=== PATIENT | female | born 1940 | race African-American/Black ===

== ENCOUNTER 2022-04-09 04:46 | Inpatient (IN) | payer MEDICARE, BC ==
[~2022-04-09] VITALS: Ht 162.6 cm; Wt 56.0 kg
[2022-04-09 07:00] LABS: Basophils # (auto) 0 10 ^3/uL (0-0.2); Basophils % (auto) 0.4 % (0.0-2.0); Eosinophils # (auto) 0 10 ^3/uL (0-0.8); Hematocrit 30.7 % (36.0-46.0); Hemoglobin 9.6 g/dL (12.2-16.2); Lymphocytes # (auto) 0.3 10 ^3/uL (0.4-5.4); Lymphocytes % (auto) 6.2 % (10.0-50.0); Mean Corpuscular Hemoglobin 28.3 pg (28.0-32.0); Mean Corpuscular Hgb Conc. 31.5 g/dL (32.0-36.0); Mean Corpuscular Volume 89.9 fL (80.0-100.0); Monocytes # (auto) 0.5 10 ^3/uL (0-1.3); Monocytes % (auto) 11.9 % (0.0-12.0); Neutrophils # (auto) 3.7 10 ^3/uL (1.6-8.6); Neutrophils % (auto) 81.5 % (37.0-80.0); Nucleated Red Blood Cells % 0.3 %; Red Blood Cells 3.41 10^6/uL (4.0-5.20); Red Cell Distribution Width 19.3 % (11.8-14.3); White Blood Cell 4.5 10^3/uL (4.4-10.8)
[2022-04-09] MEDS ORDERED: levoFLOXacin 500MG 100 ML IV ONE (07:00)
[2022-04-09 07:20] LABS: Albumin 3.1 g/dL (3.4-5.0); BUN/Creatinine Ratio 23.7; Calcium 8.7 mg/dL (8.5-10.1); Magnesium 1.9 mg/dL (1.6-2.6); Potassium 4.3 mmol/L (3.5-5.1)
[2022-04-09 07:21] LABS: Bilirubin, Total 0.6 mg/dL (0.2-1.0); Total Protein 8.1 g/dL (6.4-8.2)
[2022-04-09] MEDS ORDERED: ASPirin 325 MG TAB PO ONE (07:45)
[2022-04-09] MEDS ORDERED: FUROSEMIDE 100 MG/10ML VIAL IV ONE (07:45)
[2022-04-09 10:07] LABS: Urine Bacteria NONE SEEN /hpf (None Seen); Urine Blood 2+ /uL (Negative); Urine Hyaline Cast MANY /lpf (0 - 2); Urine Specific Gravity 1.016 (1.001-1.035); Urine WBC 5 /hpf (0 - 5)
[2022-04-09] MEDS ORDERED: MORPHINE SULFATE INJ 2 MG/ml SYRG IV PRN (13:30)
[2022-04-09] MEDS ORDERED: NITROGLYCERIN 0.4 MG SL TAB SL PRN (13:30)
[2022-04-09] MEDS ORDERED: ALBUTEROL SULF HFA 90MCG INH 200DOSE IN PRN (13:45)
[2022-04-09] MEDS ORDERED: ACETAMINOPHEN 500 MG TAB PO PRN (13:45)
[2022-04-09 15:13] LABS: Albumin 3.1 g/dL (3.4-5.0); BUN/Creatinine Ratio 22.1; Calcium 8.1 mg/dL (8.5-10.1); Magnesium 1.9 mg/dL (1.6-2.6); Potassium 4.5 mmol/L (3.5-5.1)
[2022-04-09 15:15] LABS: Bilirubin, Total 0.5 mg/dL (0.2-1.0); Total Protein 8.3 g/dL (6.4-8.2)
[2022-04-09 15:21] LABS: Thyroid Stimulating Hormone 3.01 uIU/mL (0.358-3.74)
[2022-04-09 15:25] LABS: Lactic Acid w/Reflex 3.6 mmol/L (0.4-2.0)
[2022-04-09] MEDS ORDERED: ENOXAPARIN SOD 60 MG/0.6 ML SYRINGE SC ONE (15:30)
[2022-04-09 15:32] LABS: CRP High Sensitivity 0.74 mg/dL (< 0.3)
[2022-04-09 16:29] LABS: Basophils # (auto) 0 10 ^3/uL (0-0.2); Eosinophils # (auto) 0 10 ^3/uL (0-0.8); Hematocrit 32.7 % (36.0-46.0); Hemoglobin 9.9 g/dL (12.2-16.2); Lymphocytes # (auto) 0.3 10 ^3/uL (0.4-5.4); Lymphocytes % (auto) 8.6 % (10.0-50.0); Mean Corpuscular Hemoglobin 26.8 pg (28.0-32.0); Mean Corpuscular Hgb Conc. 30.2 g/dL (32.0-36.0); Mean Corpuscular Volume 88.8 fL (80.0-100.0); Monocytes # (auto) 0.5 10 ^3/uL (0-1.3); Monocytes % (auto) 12.3 % (0.0-12.0); Neutrophils % (auto) 78.1 % (37.0-80.0); Nucleated Red Blood Cells % 0.4 %; Red Blood Cells 3.68 10^6/uL (4.0-5.20); White Blood Cell 3.8 10^3/uL (4.4-10.8)
[2022-04-09 16:35] LABS: Red Cell Distribution Width 19.5 % (11.8-14.3)
[2022-04-09] MEDS ORDERED: ALBUMIN 25% 100 ML IV ONE (19:30)
[2022-04-09] MEDS ORDERED: NOREPINEPHRINE 8 MG/250ML KIT 250 ML IV SCH (19:45)
[2022-04-09] MEDS ORDERED: BUDESONIDE (INHALATION) 180 MCG IH IN SCH (22:00)
[2022-04-10 05:01] LABS: Basophils # (auto) 0 10 ^3/uL (0-0.2); Basophils % (auto) 1.1 % (0.0-2.0); Eosinophils # (auto) 0 10 ^3/uL (0-0.8); Eosinophils % (auto) 0.6 % (0.0-7.0); Hematocrit 29.1 % (36.0-46.0); Hemoglobin 9.2 g/dL (12.2-16.2); Lymphocytes # (auto) 0.3 10 ^3/uL (0.4-5.4); Lymphocytes % (auto) 9.9 % (10.0-50.0); Mean Corpuscular Hemoglobin 27.2 pg (28.0-32.0); Mean Corpuscular Hgb Conc. 31.7 g/dL (32.0-36.0); Mean Corpuscular Volume 85.9 fL (80.0-100.0); Monocytes # (auto) 0.4 10 ^3/uL (0-1.3); Monocytes % (auto) 12.2 % (0.0-12.0); Neutrophils # (auto) 2.6 10 ^3/uL (1.6-8.6); Neutrophils % (auto) 76.2 % (37.0-80.0); Red Blood Cells 3.38 10^6/uL (4.0-5.20); Red Cell Distribution Width 18.4 % (11.8-14.3); White Blood Cell 3.4 10^3/uL (4.4-10.8)
[2022-04-10 05:28] LABS: Albumin 3.2 g/dL (3.4-5.0); Calcium 8.3 mg/dL (8.5-10.1); Potassium 4.9 mmol/L (3.5-5.1)
[2022-04-10 05:31] LABS: BUN/Creatinine Ratio 26.5; Bilirubin, Total 0.8 mg/dL (0.2-1.0); Total Protein 7.7 g/dL (6.4-8.2)
[2022-04-10] MEDS ORDERED: DOBUTamine 1000MCG/ML 250 ML IV SCH (09:30)
[2022-04-10] MEDS ORDERED: CHOLECALCIFEROL (VITD3) 2,000 UNIT CAP/TAB PO SCH (10:00)
[2022-04-10] MEDS ORDERED: ZINC SULFATE 220mg CAP or TAB PO SCH (10:00)
[2022-04-10] MEDS ORDERED: ASCORBIC ACID 1,000 MG TAB PO SCH (10:00)
[2022-04-10] MEDS ORDERED: DexAMETHasone SOD PHOS 10MG/1ML VIAL INJ IV SCH (10:00)
[2022-04-10] MEDS: ENOXAPARIN SOD 60 MG/0.6 ML SYRINGE SC SCH (10:06)
[2022-04-10] MEDS: FUROSEMIDE 20 MG/2 ML VIAL IV SCH (10:06)
[2022-04-10] MEDS: AZITHROMYCIN 500MG/ 250ML 250 ML IV SCH (10:06)
[2022-04-10 18:25] VITALS: BP 128/56
[2022-04-10] MEDS ORDERED: SILD25TA15 PO (18:50)
[2022-04-10] MEDS ORDERED: ZINC220C8 PO (18:50)
[2022-04-10] MEDS ORDERED: MAGN84TA4 PO (18:50)
[2022-04-10] MEDS ORDERED: FERR28TA2 PO (18:50)
[2022-04-10] MEDS ORDERED: PANT40TA2 PO (18:50)
[2022-04-10] MEDS ORDERED: APIX5TAB4 PO (18:50)
[2022-04-10] MEDS ORDERED: FURO20TA3 PO (18:50)
[2022-04-10 22:00] VITALS: BP 114/25
[2022-04-11] VITALS (9 sets, daily range): BP systolic 95–117; BP diastolic 25–49
[2022-04-11 07:02] LABS: Basophils # (auto) 0 10 ^3/uL (0-0.2); Basophils % (auto) 0.9 % (0.0-2.0); Eosinophils # (auto) 0 10 ^3/uL (0-0.8); Eosinophils % (auto) 1.1 % (0.0-7.0); Hematocrit 28.5 % (36.0-46.0); Hemoglobin 8.9 g/dL (12.2-16.2); Lymphocytes # (auto) 0.3 10 ^3/uL (0.4-5.4); Mean Corpuscular Hemoglobin 27.6 pg (28.0-32.0); Mean Corpuscular Hgb Conc. 31.3 g/dL (32.0-36.0); Mean Corpuscular Volume 88.1 fL (80.0-100.0); Monocytes # (auto) 0.5 10 ^3/uL (0-1.3); Monocytes % (auto) 12.9 % (0.0-12.0); Neutrophils % (auto) 78.1 % (37.0-80.0); Nucleated Red Blood Cells % 0.1 %; Red Blood Cells 3.24 10^6/uL (4.0-5.20); Red Cell Distribution Width 19.1 % (11.8-14.3); White Blood Cell 3.9 10^3/uL (4.4-10.8)
[2022-04-11 07:12] LABS: BUN/Creatinine Ratio 29.2; Calcium 8.2 mg/dL (8.5-10.1); Potassium 4.2 mmol/L (3.5-5.1)
[2022-04-11] MEDS: AZITHROMYCIN 500MG/ 250ML 250 ML IV SCH (08:18)
[2022-04-11] MEDS: ENOXAPARIN SOD 60 MG/0.6 ML SYRINGE SC SCH (08:18)
[2022-04-11] MEDS: FUROSEMIDE 20 MG/2 ML VIAL IV SCH (08:22)
[2022-04-11] MEDS ORDERED: cefTRIAXone 1GM/50ML D5W 50 ML IV ONE (10:45)
[2022-04-11] MEDS: HYDROcodone-ACET 5/325MG TAB PO PRN (22:34)
[2022-04-12 06:03] LABS: Basophils # (auto) 0 10 ^3/uL (0-0.2); Eosinophils # (auto) 0.1 10 ^3/uL (0-0.8); Eosinophils % (auto) 2.3 % (0.0-7.0); Hematocrit 27.2 % (36.0-46.0); Hemoglobin 8.8 g/dL (12.2-16.2); Lymphocytes # (auto) 0.4 10 ^3/uL (0.4-5.4); Lymphocytes % (auto) 13.3 % (10.0-50.0); Mean Corpuscular Hemoglobin 27.7 pg (28.0-32.0); Mean Corpuscular Hgb Conc. 32.3 g/dL (32.0-36.0); Mean Corpuscular Volume 85.8 fL (80.0-100.0); Monocytes # (auto) 0.3 10 ^3/uL (0-1.3); Monocytes % (auto) 11.3 % (0.0-12.0); Neutrophils # (auto) 2.2 10 ^3/uL (1.6-8.6); Neutrophils % (auto) 72.1 % (37.0-80.0); Red Blood Cells 3.17 10^6/uL (4.0-5.20); Red Cell Distribution Width 19.1 % (11.8-14.3)
[2022-04-12] MEDS: HYDROcodone-ACET 5/325MG TAB PO PRN ×3 (06:07→22:24)
[2022-04-12 06:21] LABS: BUN/Creatinine Ratio 28.1; Calcium 8.1 mg/dL (8.5-10.1); Potassium 4.9 mmol/L (3.5-5.1)
[2022-04-12] MEDS: cefTRIAXone 1GM/50ML D5W 50 ML IV SCH (09:12)
[2022-04-12] MEDS: ENOXAPARIN SOD 60 MG/0.6 ML SYRINGE SC SCH (10:03)
[2022-04-12] MEDS: AZITHROMYCIN 500MG/ 250ML 250 ML IV SCH (10:03)
[2022-04-12] MEDS: FUROSEMIDE 20 MG/2 ML VIAL IV SCH (10:03)
[2022-04-12 12:00] VITALS: BP 145/66
[2022-04-12 14:00] VITALS: BP 145/58
[2022-04-12 14:46] VITALS: BP 123/55
[2022-04-12 17:00] VITALS: BP 127/59
[2022-04-12 22:00] VITALS: BP 140/77
[2022-04-13 05:00] VITALS: BP 142/64
[2022-04-13 05:51] LABS: Calcium 8.8 mg/dL (8.5-10.1); Potassium 4.5 mmol/L (3.5-5.1)
[2022-04-13 05:58] LABS: BUN/Creatinine Ratio 28.1; Bilirubin, Total 0.4 mg/dL (0.2-1.0); Total Protein 7.6 g/dL (6.4-8.2)
[2022-04-13 06:15] LABS: Hematocrit 28.5 % (36.0-46.0); Hemoglobin 9.3 g/dL (12.2-16.2); Mean Corpuscular Hgb Conc. 32.6 g/dL (32.0-36.0); Red Blood Cells 3.31 10^6/uL (4.0-5.20); Red Cell Distribution Width 18.6 % (11.8-14.3)
[2022-04-13 06:19] LABS: Band Neutrophils % (manual) 0; Basophils % (manual) 0 (0.0-2.0); Blast Cells 0; Metamyelocytes % 0; Myelocytes % 0; Promyelocytes % 0; Reactive Lymphocytes 0
[2022-04-13 06:57] LABS: Eosinophils % (manual) 4 (0-7); Lymphocytes % (manual) 11 (10.0-50.0); Monocytes % (manual) 13 (0-12)
[2022-04-13 09:00] VITALS: BP 120/48
[2022-04-13] MEDS: AZITHROMYCIN 500MG/ 250ML 250 ML IV SCH (10:12)
[2022-04-13] MEDS: ENOXAPARIN SOD 60 MG/0.6 ML SYRINGE SC SCH (10:12)
[2022-04-13] MEDS: cefTRIAXone 1GM/50ML D5W 50 ML IV SCH (10:12)
[2022-04-13] MEDS: FUROSEMIDE 20 MG/2 ML VIAL IV SCH (10:12)
[2022-04-13 13:00] VITALS: BP 118/54
[2022-04-13 17:05] VITALS: BP 119/50
[2022-04-13] MEDS: HYDROcodone-ACET 5/325MG TAB PO PRN (20:27)
[2022-04-13 22:00] VITALS: BP 116/47
[2022-04-14] MEDS: HYDROcodone-ACET 5/325MG TAB PO PRN ×3 (02:39→22:28)
[2022-04-14 05:00] VITALS: BP 119/64
[2022-04-14 06:46] LABS: BUN/Creatinine Ratio 26.9; Calcium 8.6 mg/dL (8.5-10.1); Potassium 4.7 mmol/L (3.5-5.1)
[2022-04-14 06:55] LABS: Hematocrit 27.9 % (36.0-46.0); Hemoglobin 8.9 g/dL (12.2-16.2); Mean Corpuscular Hemoglobin 27.9 pg (28.0-32.0); Mean Corpuscular Volume 87.1 fL (80.0-100.0); Red Cell Distribution Width 19.1 % (11.8-14.3)
[2022-04-14 07:01] LABS: Basophils % (manual) 0 (0.0-2.0); Blast Cells 0; Metamyelocytes % 0; Myelocytes % 0; Promyelocytes % 0; Reactive Lymphocytes 0
[2022-04-14 07:46] LABS: Band Neutrophils % (manual) 1; Eosinophils % (manual) 6 (0-7); Lymphocytes % (manual) 22 (10.0-50.0); Monocytes % (manual) 3 (0-12)
[2022-04-14 09:00] VITALS: BP 123/57
[2022-04-14] MEDS: AZITHROMYCIN 500MG/ 250ML 250 ML IV SCH (10:44)
[2022-04-14] MEDS: cefTRIAXone 1GM/50ML D5W 50 ML IV SCH (10:44)
[2022-04-14] MEDS: FUROSEMIDE 20 MG/2 ML VIAL IV SCH (10:44)
[2022-04-14] MEDS: ENOXAPARIN SOD 60 MG/0.6 ML SYRINGE SC SCH (10:45)
[2022-04-14 13:00] VITALS: BP 131/61
[2022-04-14 17:25] VITALS: BP 131/62
[2022-04-14 22:00] VITALS: BP 112/45
[2022-04-15 05:00] VITALS: BP 127/59
[2022-04-15] MEDS: HYDROcodone-ACET 5/325MG TAB PO PRN ×2 (05:42→20:40)
[2022-04-15 09:15] VITALS: BP 134/62
[2022-04-15] MEDS: cefTRIAXone 1GM/50ML D5W 50 ML IV SCH (09:28)
[2022-04-15] MEDS: FUROSEMIDE 20 MG/2 ML VIAL IV SCH (10:28)
[2022-04-15] MEDS: ENOXAPARIN SOD 60 MG/0.6 ML SYRINGE SC SCH (10:28)
[2022-04-15 12:16] VITALS: BP 127/67
[2022-04-15 17:10] VITALS: BP 139/63
[2022-04-15] MEDS ORDERED: IPRATROPIUM BROM 0.5 MG/2.5ML INH SOL NEB PRN (18:30)
[2022-04-15] MEDS ORDERED: ALBUTEROL SULF 2.5 MG/0.5ML(0.5%) NEB SOLN NEB PRN (18:30)
[2022-04-15 19:26] VITALS: BP 139/63
[2022-04-15] MEDS: methylPREDNISolone SOD SUCC 40 MG/ML VL IV SCH (21:02)
[2022-04-15 22:00] VITALS: BP 120/50
[2022-04-16] MEDS: HYDROcodone-ACET 5/325MG TAB PO PRN (04:05)
[2022-04-16 05:00] VITALS: BP 122/58
[2022-04-16 08:55] VITALS: BP 119/59
[2022-04-16] MEDS: cefTRIAXone 1GM/50ML D5W 50 ML IV SCH (09:04)
[2022-04-16] MEDS: methylPREDNISolone SOD SUCC 40 MG/ML VL IV SCH (09:05)
[2022-04-16] MEDS: FUROSEMIDE 20 MG/2 ML VIAL IV SCH (09:05)
[2022-04-16] MEDS: ENOXAPARIN SOD 60 MG/0.6 ML SYRINGE SC SCH (09:05)
[2022-04-16 10:56] VITALS: BP 119/59
[2022-04-16 13:12] VITALS: BP 116/72
== END 2022-04-16 17:46 | disposition home health service (06) | DRG 280 ==
LOC: EDBD 04:46 → ER 04:46 → TELE 13:26 → TELE-WESTW 04-10 17:39 → DOU IN ICU 04-11 10:28 → TELE-CENTR 04-12 14:48
PROVIDERS: ADMIT Registered Nurse; ATTEND Internal Medicine Pulmonary Disease
DX: I21.4 Non-ST elevation (NSTEMI) myocardial infarction (principal); I50.43 Acute on chronic combined systolic (congestive) and diastolic (congestive) heart failure; J96.21 Acute and chronic respiratory failure with hypoxia; J18.9 Pneumonia, unspecified organism; I48.20 Chronic atrial fibrillation, unspecified; N17.9 Acute kidney failure, unspecified; C78.7 Secondary malignant neoplasm of liver and intrahepatic bile duct; C18.9 Malignant neoplasm of colon, unspecified; C78.1 Secondary malignant neoplasm of mediastinum; I13.0 Hypertensive heart and chronic kidney disease with heart failure and stage 1 through stage 4 chronic kidney disease, or unspecified chronic kidney disease; N18.4 Chronic kidney disease, stage 4 (severe); D63.8 Anemia in other chronic diseases classified elsewhere; D69.6 Thrombocytopenia, unspecified; Z20.822 Contact with and (suspected) exposure to COVID-19; E16.2 Hypoglycemia, unspecified; E88.09 Other disorders of plasma-protein metabolism, not elsewhere classified; I25.10 Atherosclerotic heart disease of native coronary artery without angina pectoris; I27.20 Pulmonary hypertension, unspecified; J84.10 Pulmonary fibrosis, unspecified; Z85.038 Personal history of other malignant neoplasm of large intestine; Z92.21 Personal history of antineoplastic chemotherapy
CPT/HCPCS: 36415; 70450; 71045; 71250; 76775; 80048; 80053; 81001; 82306; 82728; 83036; 83605; 83615; 83735; 83880; 84443; 84484; 85007; 85025; 85027; 85379; 86141; 93005; 93306; 93970; 96365; 96366; 96367; 96372; 96375; 96376; 99291; G0378; J0696; J1956; P9047

== ENCOUNTER 2022-06-04 21:20 | Inpatient (IN) | payer MEDICARE, BC ==
[~2022-06-04] VITALS: Ht 160 cm; Wt 49.2 kg
[~2022-06-04 21:20] MED LIST: APIX5TAB4 PO; FERR28TA2 PO; FURO20TA3 PO; MAGN84TA4 PO; PANT40TA2 PO; SILD25TA15 PO; ZINC220C8 PO
[2022-06-04 22:56] LABS: Hemoglobin 8.6 g/dL (12.2-16.2); Mean Corpuscular Hemoglobin 28.1 pg (28.0-32.0); Mean Corpuscular Volume 87.7 fL (80.0-100.0); Red Blood Cells 3.08 10^6/uL (4.0-5.20); Red Cell Distribution Width 19.1 % (11.8-14.3); White Blood Cell 3.2 10^3/uL (4.4-10.8)
[2022-06-04 23:06] LABS: Calcium 8.2 mg/dL (8.5-10.1); Magnesium 1.5 mg/dL (1.6-2.6); Potassium 4.3 mmol/L (3.5-5.1)
[2022-06-04 23:07] LABS: INR 1.13 (0.9-1.15); Partial Thromboplastin Time 28.9 sec (24.6-33.4)
[2022-06-04 23:09] LABS: BUN/Creatinine Ratio 21.6; Basophils % (manual) 0 (0.0-2.0); Bilirubin, Total 0.3 mg/dL (0.2-1.0); Blast Cells 0; Myelocytes % 0; Promyelocytes % 0; Reactive Lymphocytes 0; Total Protein 7.6 g/dL (6.4-8.2)
[2022-06-04 23:31] LABS: Band Neutrophils % (manual) 3; Eosinophils % (manual) 3 (0-7); Lymphocytes % (manual) 8 (10.0-50.0); Metamyelocytes % 1; Monocytes % (manual) 14 (0-12)
[2022-06-05] MEDS ORDERED: cefTRIAXone 1GM/50ML D5W 50 ML IV ONE (03:00)
[2022-06-05] MEDS ORDERED: AZITHROMYCIN 500MG/ 250ML 250 ML IV ONE (03:00)
[2022-06-05] MEDS ORDERED: FUROSEMIDE 20 MG/2 ML VIAL IV ONE (03:00)
[2022-06-05] MEDS ORDERED: MORPHINE SULFATE INJ 2 MG/ml SYRG IV PRN (05:45)
[2022-06-05] MEDS ORDERED: NITROGLYCERIN 0.4 MG SL TAB SL PRN (05:45)
[2022-06-05] MEDS ORDERED: ONDANSETRON HCL 4 MG/2 ML VIAL IV PRN (05:45)
[2022-06-05] MEDS: MAGNESIUM SULFATE 1GM/100ML 100 ML IV SCH ×2 (06:36→06:59)
[2022-06-05] MEDS: FUROSEMIDE 20 MG/2 ML VIAL IV SCH ×2 (06:37→17:54)
[2022-06-05] MEDS ORDERED: APIXABAN 2.5 MG TAB PO SCH ×2 (10:00)
[2022-06-05] MEDS: SILDENAFIL CITRATE 20 MG TAB PO SCH (10:14)
[2022-06-05] MEDS: PANTOPRAZOLE 40 MG TAB PO SCH (10:15)
[2022-06-05] MEDS ORDERED: ALBUMIN 25% 100 ML IV ONE ×2 (12:30→12:45)
[2022-06-05] MEDS ORDERED: SODIUM CHLORIDE 0.9% 1,000 ML IV SCH (12:45)
[2022-06-05] MEDS: cefTRIAXone 1GM/50ML D5W 50 ML IV SCH (21:38)
[2022-06-05 22:00] VITALS: BP 105/63
[2022-06-05] MEDS: AZITHROMYCIN 500MG/ 250ML 250 ML IV SCH (22:16)
[2022-06-06] MEDS: ACETAMINOPHEN 325 MG TAB PO PRN ×2 (02:03→23:16)
[2022-06-06 05:00] VITALS: BP 107/52
[2022-06-06] MEDS: FUROSEMIDE 20 MG/2 ML VIAL IV SCH ×2 (05:38→17:08)
[2022-06-06 05:54] LABS: Basophils # (auto) 0 10 ^3/uL (0-0.2); Eosinophils # (auto) 0.2 10 ^3/uL (0-0.8); Monocytes # (auto) 0.3 10 ^3/uL (0-1.3); Nucleated Red Blood Cells % 0.1 %; White Blood Cell 2.8 10^3/uL (4.4-10.8)
[2022-06-06 05:56] LABS: Basophils % (auto) 1.7 % (0.0-2.0); Eosinophils % (auto) 8.3 % (0.0-7.0); Hematocrit 24.1 % (36.0-46.0); Lymphocytes # (auto) 0.6 10 ^3/uL (0.4-5.4); Lymphocytes % (auto) 20.2 % (10.0-50.0); Mean Corpuscular Hemoglobin 29.1 pg (28.0-32.0); Mean Corpuscular Hgb Conc. 33.2 g/dL (32.0-36.0); Mean Corpuscular Volume 87.7 fL (80.0-100.0); Monocytes % (auto) 12.4 % (0.0-12.0); Neutrophils # (auto) 1.6 10 ^3/uL (1.6-8.6); Neutrophils % (auto) 57.4 % (37.0-80.0); Red Blood Cells 2.74 10^6/uL (4.0-5.20); Red Cell Distribution Width 18.9 % (11.8-14.3)
[2022-06-06 06:09] LABS: Potassium 4.3 mmol/L (3.5-5.1)
[2022-06-06 06:24] LABS: Albumin 2.8 g/dL (3.4-5.0); BUN/Creatinine Ratio 24.6; Bilirubin, Total 0.4 mg/dL (0.2-1.0); Calcium 8.3 mg/dL (8.5-10.1); Total Protein 6.5 g/dL (6.4-8.2)
[2022-06-06 07:26] VITALS: BP 121/60
[2022-06-06] MEDS: PANTOPRAZOLE 40 MG TAB PO SCH (09:41)
[2022-06-06] MEDS: SILDENAFIL CITRATE 20 MG TAB PO SCH (09:41)
[2022-06-06] MEDS: ENOXAPARIN SOD 60 MG/0.6 ML SYRINGE SC SCH (09:42)
[2022-06-06 12:05] VITALS: BP 98/49
[2022-06-06 17:19] VITALS: BP 102/52
[2022-06-06] MEDS ORDERED: MAGNESIUM SULFATE 1GM/100ML 100 ML IV ONE (20:00)
[2022-06-06] MEDS: cefTRIAXone 1GM/50ML D5W 50 ML IV SCH (21:03)
[2022-06-06 22:00] VITALS: BP 116/55
[2022-06-06] MEDS: AZITHROMYCIN 500MG/ 250ML 250 ML IV SCH (22:07)
[2022-06-07 05:00] VITALS: BP 101/52
[2022-06-07 05:34] LABS: Basophils # (auto) 0 10 ^3/uL (0-0.2); Hemoglobin 7.9 g/dL (12.2-16.2); Mean Corpuscular Hgb Conc. 33.1 g/dL (32.0-36.0); Red Cell Distribution Width 18.7 % (11.8-14.3)
[2022-06-07 05:38] LABS: Basophils % (auto) 1.7 % (0.0-2.0); Eosinophils # (auto) 0.3 10 ^3/uL (0-0.8); Eosinophils % (auto) 10.5 % (0.0-7.0); Hematocrit 23.9 % (36.0-46.0); Lymphocytes # (auto) 0.6 10 ^3/uL (0.4-5.4); Lymphocytes % (auto) 21.8 % (10.0-50.0); Mean Corpuscular Hemoglobin 28.8 pg (28.0-32.0); Mean Corpuscular Volume 87.1 fL (80.0-100.0); Monocytes # (auto) 0.4 10 ^3/uL (0-1.3); Monocytes % (auto) 13.9 % (0.0-12.0); Neutrophils # (auto) 1.4 10 ^3/uL (1.6-8.6); Neutrophils % (auto) 52.1 % (37.0-80.0); Nucleated Red Blood Cells % 0.1 %; Red Blood Cells 2.75 10^6/uL (4.0-5.20); White Blood Cell 2.6 10^3/uL (4.4-10.8)
[2022-06-07 05:58] LABS: Calcium 7.8 mg/dL (8.5-10.1)
[2022-06-07] MEDS: FUROSEMIDE 20 MG/2 ML VIAL IV SCH ×2 (06:00→17:10)
[2022-06-07 06:09] LABS: BUN/Creatinine Ratio 27.5
[2022-06-07 09:00] VITALS: BP 96/56
[2022-06-07] MEDS: ENOXAPARIN SOD 60 MG/0.6 ML SYRINGE SC SCH (09:22)
[2022-06-07] MEDS: PANTOPRAZOLE 40 MG TAB PO SCH (09:22)
[2022-06-07] MEDS: SILDENAFIL CITRATE 20 MG TAB PO SCH (09:22)
[2022-06-07 13:00] VITALS: BP 115/62
[2022-06-07 16:49] LABS: INR 1.08 (0.9-1.15)
[2022-06-07 17:00] VITALS: BP 104/56
[2022-06-07] MEDS ORDERED: ZINC50TA35 PO (18:45)
[2022-06-07] MEDS ORDERED: MAGN250T3 PO (18:45)
[2022-06-07] MEDS ORDERED: MIRT-68 PO (18:45)
[2022-06-07] MEDS ORDERED: FER325T PO (18:45)
[2022-06-07] MEDS ORDERED: DICY20TA2 PO (18:45)
[2022-06-07] MEDS ORDERED: FURO40TA4 PO (18:45)
[2022-06-07] MEDS ORDERED: SILD20TA PO (18:47)
[2022-06-07] MEDS: cefTRIAXone 1GM/50ML D5W 50 ML IV SCH (20:58)
[2022-06-07 22:00] VITALS: BP 91/50
[2022-06-07] MEDS: AZITHROMYCIN 500MG/ 250ML 250 ML IV SCH (22:08)
[2022-06-07] MEDS: ACETAMINOPHEN 325 MG TAB PO PRN (23:23)
[2022-06-08] VITALS (8 sets, daily range): BP systolic 102–130; BP diastolic 42–64
[2022-06-08 05:46] LABS: Basophils # (auto) 0.1 10 ^3/uL (0-0.2); Eosinophils # (auto) 0.2 10 ^3/uL (0-0.8); Monocytes # (auto) 0.3 10 ^3/uL (0-1.3); Nucleated Red Blood Cells % 0.1 %
[2022-06-08 05:50] LABS: Basophils % (auto) 2.6 % (0.0-2.0); Eosinophils % (auto) 6.9 % (0.0-7.0); Hematocrit 24.5 % (36.0-46.0); Lymphocytes # (auto) 0.5 10 ^3/uL (0.4-5.4); Lymphocytes % (auto) 18.5 % (10.0-50.0); Mean Corpuscular Hemoglobin 28.3 pg (28.0-32.0); Mean Corpuscular Hgb Conc. 32.6 g/dL (32.0-36.0); Mean Corpuscular Volume 86.8 fL (80.0-100.0); Monocytes % (auto) 13.1 % (0.0-12.0); Neutrophils # (auto) 1.5 10 ^3/uL (1.6-8.6); Neutrophils % (auto) 58.9 % (37.0-80.0); Red Blood Cells 2.83 10^6/uL (4.0-5.20); Red Cell Distribution Width 18.9 % (11.8-14.3); White Blood Cell 2.5 10^3/uL (4.4-10.8)
[2022-06-08 06:00] LABS: Potassium 4.1 mmol/L (3.5-5.1)
[2022-06-08 06:02] LABS: BUN/Creatinine Ratio 27.5
[2022-06-08] MEDS: FUROSEMIDE 20 MG/2 ML VIAL IV SCH ×2 (06:14→18:00)
[2022-06-08] MEDS: ENOXAPARIN SOD 60 MG/0.6 ML SYRINGE SC SCH (10:00)
[2022-06-08] MEDS: SILDENAFIL CITRATE 20 MG TAB PO SCH (10:00)
[2022-06-08] MEDS: PANTOPRAZOLE 40 MG TAB PO SCH (10:00)
[2022-06-08] MEDS ORDERED: VANCOMYCIN HCL 1000 MG VL ONE (10:53)
[2022-06-08] MEDS ORDERED: LIDOCAINE 2%HCL (LOCAL ANESTH.) INJ 20ML MDV ONE (10:54)
[2022-06-08] MEDS ORDERED: VANCOMYCIN 1GM/250ML 250 ML IV ONE (10:55)
[2022-06-08] MEDS: MIDAZOLAM HCL 2MG/2ML 2ml VIAL (1mg/ml) ONE ×2 (12:14→12:32)
[2022-06-08] MEDS: fentaNYL CITRATE 100 MCG/2 ML VL ONE ×2 (12:14→12:18)
[2022-06-08] MEDS ORDERED: IODIXANOL 320MG/ML 100ML BTL IV ONE ×2 (12:22→12:34)
[2022-06-08] MEDS: cefTRIAXone 1GM/50ML D5W 50 ML IV SCH (21:34)
[2022-06-08] MEDS: AZITHROMYCIN 500MG/ 250ML 250 ML IV SCH (22:41)
[2022-06-08] MEDS: ACETAMINOPHEN 325 MG TAB PO PRN (22:47)
[2022-06-09 05:00] VITALS: BP 109/56
[2022-06-09] MEDS: FUROSEMIDE 20 MG/2 ML VIAL IV SCH ×2 (05:30→18:00)
[2022-06-09 06:44] LABS: Eosinophils # (auto) 0.1 10 ^3/uL (0-0.8); Hemoglobin 7.8 g/dL (12.2-16.2); Lymphocytes # (auto) 0.5 10 ^3/uL (0.4-5.4); Monocytes # (auto) 0.4 10 ^3/uL (0-1.3)
[2022-06-09 06:47] LABS: Basophils # (auto) 0.1 10 ^3/uL (0-0.2); Basophils % (auto) 3.7 % (0.0-2.0); Eosinophils % (auto) 2.9 % (0.0-7.0); Hematocrit 23.5 % (36.0-46.0); Mean Corpuscular Hemoglobin 28.8 pg (28.0-32.0); Mean Corpuscular Hgb Conc. 33.2 g/dL (32.0-36.0); Mean Corpuscular Volume 86.5 fL (80.0-100.0); Monocytes % (auto) 12.4 % (0.0-12.0); Neutrophils # (auto) 2.1 10 ^3/uL (1.6-8.6); Red Blood Cells 2.72 10^6/uL (4.0-5.20); Red Cell Distribution Width 18.6 % (11.8-14.3); White Blood Cell 3.1 10^3/uL (4.4-10.8)
[2022-06-09 07:06] LABS: Potassium 4.5 mmol/L (3.5-5.1)
[2022-06-09 07:11] LABS: BUN/Creatinine Ratio 29.3; Calcium 7.9 mg/dL (8.5-10.1)
[2022-06-09 09:00] VITALS: BP 107/57
[2022-06-09] MEDS: SILDENAFIL CITRATE 20 MG TAB PO SCH (09:30)
[2022-06-09] MEDS: PANTOPRAZOLE 40 MG TAB PO SCH (09:30)
[2022-06-09] MEDS ORDERED: ENOXAPARIN SOD 60 MG/0.6 ML SYRINGE SC SCH (10:00)
[2022-06-09 16:52] VITALS: BP 116/53
[2022-06-09] MEDS: cefTRIAXone 1GM/50ML D5W 50 ML IV SCH (20:28)
[2022-06-09] MEDS: AZITHROMYCIN 500MG/ 250ML 250 ML IV SCH (21:08)
[2022-06-09 22:00] VITALS: BP 102/38
[2022-06-10] MEDS: ACETAMINOPHEN 325 MG TAB PO PRN (00:33)
[2022-06-10 05:00] VITALS: BP 105/50
[2022-06-10] MEDS: FUROSEMIDE 20 MG/2 ML VIAL IV SCH ×2 (06:34→18:00)
[2022-06-10 08:42] VITALS: BP 93/45
[2022-06-10] MEDS ORDERED: APIXABAN 2.5 MG TAB PO SCH (10:00)
[2022-06-10] MEDS: SILDENAFIL CITRATE 20 MG TAB PO SCH (10:04)
[2022-06-10] MEDS: PANTOPRAZOLE 40 MG TAB PO SCH (10:07)
[2022-06-10] MEDS ORDERED: AZIT500T66 PO (11:07)
[2022-06-10 13:09] VITALS: BP 106/58
[2022-06-10] MEDS: cefTRIAXone 1GM/50ML D5W 50 ML IV SCH (20:00)
== END 2022-06-10 20:31 | disposition home health service (06) | DRG 193 ==
LOC: EDBD 21:20 → ER 21:23 → TELE 06-05 05:36 → TELE-EAST 06-05 20:32
PROVIDERS: ADMIT Nurse Practitioner; ATTEND Internal Medicine Pulmonary Disease
PROC: 0WJ83ZZ Inspection of Chest Wall, Percutaneous Approach (ICD-10-PCS; principal; 2022-06-08)
PROC: B516YZZ Fluoroscopy of Right Subclavian Vein using Other Contrast (ICD-10-PCS; 2022-06-08)
DX: J18.9 Pneumonia, unspecified organism (principal); E43 Unspecified severe protein-calorie malnutrition; I50.33 Acute on chronic diastolic (congestive) heart failure; J96.21 Acute and chronic respiratory failure with hypoxia; N18.4 Chronic kidney disease, stage 4 (severe); J44.0 Chronic obstructive pulmonary disease with (acute) lower respiratory infection; J98.11 Atelectasis; Z68.1 Body mass index [BMI] 19.9 or less, adult; D63.8 Anemia in other chronic diseases classified elsewhere; I27.21 Secondary pulmonary arterial hypertension; I48.0 Paroxysmal atrial fibrillation; J84.10 Pulmonary fibrosis, unspecified; R04.0 Epistaxis; Z20.822 Contact with and (suspected) exposure to COVID-19; I49.5 Sick sinus syndrome; D70.9 Neutropenia, unspecified; E83.42 Hypomagnesemia; Z85.038 Personal history of other malignant neoplasm of large intestine; Z79.01 Long term (current) use of anticoagulants; Z86.16 Personal history of COVID-19
CPT/HCPCS: 36415; 36600; 71045; 71250; 75820; 80048; 80053; 82805; 83605; 83735; 83880; 84484; 85007; 85025; 85027; 85610; 85730; 93005; 96365; 96367; 96368; 96375; 97110; 97116; 97163; 97530; 99152; 99153; 99291; G0378; J0696; J2250; P9047; Q9967

== ENCOUNTER 2022-08-22 13:16 | Inpatient (IN) | payer MEDICARE, BC ==
[~2022-08-22] VITALS: Ht 165.1 cm; Wt 54.3 kg
[~2022-08-22 13:16] MED LIST changes: +AZIT500T66 PO; +DICY20TA2 PO; +FER325T PO; -FERR28TA2 PO; -FURO20TA3 PO; +FURO40TA4 PO; +MAGN250T3 PO; -MAGN84TA4 PO; +MIRT-68 PO; +SILD20TA PO; -SILD25TA15 PO; -ZINC220C8 PO; +ZINC50TA35 PO
[2022-08-22 15:34] LABS: Basophils # (auto) 0 10 ^3/uL (0-0.2); Basophils % (auto) 1.7 % (0.0-2.0); Eosinophils # (auto) 0.1 10 ^3/uL (0-0.8); Eosinophils % (auto) 2.6 % (0.0-7.0); Hematocrit 30.2 % (36.0-46.0); Hemoglobin 9.6 g/dL (12.2-16.2); Lymphocytes # (auto) 0.7 10 ^3/uL (0.4-5.4); Lymphocytes % (auto) 23.2 % (10.0-50.0); Mean Corpuscular Hemoglobin 27.9 pg (28.0-32.0); Mean Corpuscular Hgb Conc. 31.7 g/dL (32.0-36.0); Monocytes # (auto) 0.4 10 ^3/uL (0-1.3); Monocytes % (auto) 14.2 % (0.0-12.0); Neutrophils # (auto) 1.7 10 ^3/uL (1.6-8.6); Neutrophils % (auto) 58.3 % (37.0-80.0); Nucleated Red Blood Cells % 0.1 %; Red Blood Cells 3.43 10^6/uL (4.0-5.20); Red Cell Distribution Width 19.2 % (11.8-14.3); White Blood Cell 2.9 10^3/uL (4.4-10.8)
[2022-08-22 15:46] LABS: Urine Blood Negative /uL (Negative); Urine Specific Gravity 1.007 (1.001-1.035)
[2022-08-22 15:47] LABS: INR 1.1 (0.9-1.15)
[2022-08-22 15:49] LABS: Albumin 3.3 g/dL (3.4-5.0); Calcium 8.7 mg/dL (8.5-10.1); Potassium 4.7 mmol/L (3.5-5.1)
[2022-08-22 15:51] LABS: BUN/Creatinine Ratio 24.7
[2022-08-22 15:54] LABS: Bilirubin, Total 0.5 mg/dL (0.2-1.0); Total Protein 8.3 g/dL (6.4-8.2)
[2022-08-22] MEDS ORDERED: FUROSEMIDE 40 MG/4 ML VIAL IV ONE (17:00)
[2022-08-22] MEDS ORDERED: ACETAMINOPHEN 325 MG TAB PO PRN (18:00)
[2022-08-22] MEDS ORDERED: FUROSEMIDE 20 MG/2 ML VIAL IV ONE (20:30)
[2022-08-22] MEDS: ASCORBIC ACID 500 MG TAB PO SCH ×2 (22:00→22:26)
[2022-08-22] MEDS: SODIUM CHLOR 0.9% PF (SALINE LOCK) 10ML VIAL/SYR IV SCH (22:26)
[2022-08-23 05:20] LABS: Albumin 2.7 g/dL (3.4-5.0); Anion Gap 7 (5-15); Blood Urea Nitrogen 46 mg/dL (7-18); Calcium 8.3 mg/dL (8.5-10.1); Carbon Dioxide 26 mmol/L (21-32); Chloride 110 mmol/L (98-107); Glucose 74 mg/dL (74-106); Potassium 4.6 mmol/L (3.5-5.1); Sodium 143 mmol/L (136-145)
[2022-08-23 05:22] LABS: Alanine Aminotransferase 13 U/L (13-56); Aspartate Aminotransferase 20 U/L (15-37); BUN/Creatinine Ratio 26.9; GFR African American 37 mL/min; GFR Non-African American 30 mL/min; Hematocrit 28.5 % (36.0-46.0); Mean Corpuscular Hgb Conc. 31.5 g/dL (32.0-36.0); Mean Corpuscular Volume 88.8 fL (80.0-100.0); Red Blood Cells 3.21 10^6/uL (4.0-5.20); Red Cell Distribution Width 18.6 % (11.8-14.3); White Blood Cell 3.2 10^3/uL (4.4-10.8)
[2022-08-23 05:24] LABS: Alkaline Phosphatase 84 U/L (45-117); Bilirubin, Total 0.4 mg/dL (0.2-1.0); Total Protein 7.3 g/dL (6.4-8.2)
[2022-08-23 06:16] LABS: Basophils % (manual) 0 (0.0-2.0); Blast Cells 0; Reactive Lymphocytes 0
[2022-08-23] MEDS: SODIUM CHLOR 0.9% PF (SALINE LOCK) 10ML VIAL/SYR IV SCH ×3 (06:25→23:13)
[2022-08-23 08:52] LABS: Band Neutrophils % (manual) 2; Eosinophils % (manual) 1 (0-7); Lymphocytes % (manual) 12 (10.0-50.0); Metamyelocytes % 1; Monocytes % (manual) 10 (0-12); Myelocytes % 2; Promyelocytes % 1
[2022-08-23 09:33] LABS: % Iron Saturation 16.1 % (15-50)
[2022-08-23 10:00] VITALS: BP 126/60
[2022-08-23] MEDS: ENOXAPARIN SOD 30 MG/0.3 ML SYRINGE SC SCH (10:00)
[2022-08-23] MEDS: MULTIPLE VITAMIN TAB PO SCH (10:00)
[2022-08-23] MEDS: FERROUS SULFATE 325mg EC TAB PO SCH (10:00)
[2022-08-23] MEDS ORDERED: ZINC SULFATE 220mg CAP or TAB PO SCH (10:00)
[2022-08-23] MEDS ORDERED: SILDENAFIL CITRATE 20 MG TAB PO SCH (10:00)
[2022-08-23] MEDS ORDERED: FUROSEMIDE 20 MG/2 ML VIAL IV ONE (11:00)
[2022-08-23] MEDS: HYDROcodone-ACET 5/325MG TAB PO PRN (12:23)
[2022-08-23] MEDS: SILDENAFIL CITRATE 20 MG TAB PO SCH ×2 (14:00→20:25)
[2022-08-23 14:41] VITALS: BP 139/80
[2022-08-23 16:50] VITALS: BP 161/72
[2022-08-23] MEDS: FUROSEMIDE 20 MG/2 ML VIAL IV SCH (17:32)
[2022-08-23 22:00] VITALS: BP 116/60
[2022-08-24 05:00] VITALS: BP 120/70
[2022-08-24] MEDS: SODIUM CHLOR 0.9% PF (SALINE LOCK) 10ML VIAL/SYR IV SCH ×3 (06:02→20:44)
[2022-08-24] MEDS: FUROSEMIDE 20 MG/2 ML VIAL IV SCH ×2 (06:32→18:02)
[2022-08-24 08:42] LABS: Basophils # (auto) 0.1 10 ^3/uL (0-0.2); Basophils % (auto) 2.1 % (0.0-2.0); Eosinophils # (auto) 0.2 10 ^3/uL (0-0.8); Eosinophils % (auto) 6.8 % (0.0-7.0); Hematocrit 29.5 % (36.0-46.0); Hemoglobin 9.6 g/dL (12.2-16.2); Lymphocytes # (auto) 0.7 10 ^3/uL (0.4-5.4); Lymphocytes % (auto) 22.7 % (10.0-50.0); Mean Corpuscular Hemoglobin 28.5 pg (28.0-32.0); Mean Corpuscular Hgb Conc. 32.7 g/dL (32.0-36.0); Mean Corpuscular Volume 87.1 fL (80.0-100.0); Monocytes # (auto) 0.4 10 ^3/uL (0-1.3); Monocytes % (auto) 12.3 % (0.0-12.0); Neutrophils # (auto) 1.8 10 ^3/uL (1.6-8.6); Neutrophils % (auto) 56.1 % (37.0-80.0); Nucleated Red Blood Cells % 0.1 %; Red Blood Cells 3.38 10^6/uL (4.0-5.20); Red Cell Distribution Width 18.4 % (11.8-14.3); White Blood Cell 3.1 10^3/uL (4.4-10.8)
[2022-08-24 08:50] LABS: Albumin 3.2 g/dL (3.4-5.0); Calcium 9.1 mg/dL (8.5-10.1); Magnesium 1.5 mg/dL (1.6-2.6); Potassium 4.7 mmol/L (3.5-5.1)
[2022-08-24 08:53] LABS: BUN/Creatinine Ratio 27.9; Bilirubin, Total 0.7 mg/dL (0.2-1.0); Total Protein 7.2 g/dL (6.4-8.2)
[2022-08-24 09:00] VITALS: BP 117/61
[2022-08-24] MEDS: FERROUS SULFATE 325mg EC TAB PO SCH (09:03)
[2022-08-24] MEDS: MULTIPLE VITAMIN TAB PO SCH (09:04)
[2022-08-24] MEDS: ENOXAPARIN SOD 30 MG/0.3 ML SYRINGE SC SCH (09:04)
[2022-08-24] MEDS: SILDENAFIL CITRATE 20 MG TAB PO SCH ×4 (09:04→20:00)
[2022-08-24] MEDS ORDERED: LIDOCAINE 2% (LOCAL ANESTH.) PF 5ml SDV ONE (10:29)
[2022-08-24 15:10] VITALS: BP 106/57
[2022-08-24 17:00] VITALS: BP 94/39
[2022-08-24] MEDS: HYDROcodone-ACET 5/325MG TAB PO PRN (20:41)
[2022-08-24 21:30] VITALS: BP 102/43
[2022-08-24 22:02] VITALS: BP 102/43
[2022-08-24] MEDS ORDERED: levoFLOXacin 500MG 100 ML IV ONE (23:00)
[2022-08-25 05:00] VITALS: BP 121/58
[2022-08-25] MEDS: FUROSEMIDE 20 MG/2 ML VIAL IV SCH ×2 (05:43→16:42)
[2022-08-25] MEDS: SODIUM CHLOR 0.9% PF (SALINE LOCK) 10ML VIAL/SYR IV SCH ×3 (05:43→22:31)
[2022-08-25] MEDS: SILDENAFIL CITRATE 20 MG TAB PO SCH ×3 (08:00→22:30)
[2022-08-25] MEDS: MULTIPLE VITAMIN TAB PO SCH (08:44)
[2022-08-25] MEDS: ENOXAPARIN SOD 30 MG/0.3 ML SYRINGE SC SCH (08:44)
[2022-08-25] MEDS: FERROUS SULFATE 325mg EC TAB PO SCH (08:44)
[2022-08-25 09:00] VITALS: BP 122/43
[2022-08-25] MEDS ORDERED: MAGNESIUM OXIDE 400 MG TAB PO ONE (11:00)
[2022-08-25 12:02] LABS: Magnesium 1.7 mg/dL (1.6-2.6); Potassium 4.6 mmol/L (3.5-5.1)
[2022-08-25 13:00] VITALS: BP 122/59
[2022-08-25 17:00] VITALS: BP 121/46
[2022-08-25 22:00] VITALS: BP 140/47
[2022-08-25] MEDS ORDERED: levoFLOXacin 250MG 50 ML IV SCH (22:00)
[2022-08-25] MEDS: MAGNESIUM OXIDE 400 MG TAB PO SCH (22:30)
[2022-08-26 05:00] VITALS: BP 122/64
[2022-08-26] MEDS: FUROSEMIDE 20 MG/2 ML VIAL IV SCH ×3 (05:22→22:00)
[2022-08-26] MEDS: SODIUM CHLOR 0.9% PF (SALINE LOCK) 10ML VIAL/SYR IV SCH ×3 (06:28→22:58)
[2022-08-26 07:39] LABS: Hematocrit 26.5 % (36.0-46.0); Hemoglobin 8.7 g/dL (12.2-16.2); Mean Corpuscular Hemoglobin 28.5 pg (28.0-32.0); Mean Corpuscular Hgb Conc. 32.9 g/dL (32.0-36.0); Mean Corpuscular Volume 86.6 fL (80.0-100.0); Red Blood Cells 3.06 10^6/uL (4.0-5.20); White Blood Cell 3.6 10^3/uL (4.4-10.8)
[2022-08-26 07:44] LABS: Basophils % (manual) 0 (0.0-2.0); Blast Cells 0; Metamyelocytes % 0; Myelocytes % 0; Promyelocytes % 0; Reactive Lymphocytes 0
[2022-08-26 07:54] LABS: BUN/Creatinine Ratio 27.3; Calcium 8.9 mg/dL (8.5-10.1); Magnesium 1.8 mg/dL (1.6-2.6)
[2022-08-26] MEDS: MULTIPLE VITAMIN TAB PO SCH (08:03)
[2022-08-26] MEDS: ENOXAPARIN SOD 30 MG/0.3 ML SYRINGE SC SCH (08:04)
[2022-08-26] MEDS: FERROUS SULFATE 325mg EC TAB PO SCH (08:04)
[2022-08-26] MEDS: MAGNESIUM OXIDE 400 MG TAB PO SCH ×2 (08:04→22:58)
[2022-08-26] MEDS: SILDENAFIL CITRATE 20 MG TAB PO SCH ×3 (08:04→20:00)
[2022-08-26 08:38] LABS: Band Neutrophils % (manual) 6; Eosinophils % (manual) 4 (0-7); Lymphocytes % (manual) 20 (10.0-50.0); Monocytes % (manual) 11 (0-12)
[2022-08-26 09:00] VITALS: BP 125/56
[2022-08-26 13:00] VITALS: BP 122/49
[2022-08-26 15:00] VITALS: BP 102/45
[2022-08-26 17:00] VITALS: BP 108/52
[2022-08-26 22:00] VITALS: BP 114/42
[2022-08-26] MEDS: DOXYCYCLINE 100MG/250ML 250 ML IV SCH (22:58)
[2022-08-27 05:00] VITALS: BP 125/53
[2022-08-27] MEDS: SODIUM CHLOR 0.9% PF (SALINE LOCK) 10ML VIAL/SYR IV SCH ×3 (06:43→22:41)
[2022-08-27] MEDS: FUROSEMIDE 20 MG/2 ML VIAL IV SCH (06:43)
[2022-08-27] MEDS: SILDENAFIL CITRATE 20 MG TAB PO SCH ×3 (08:40→23:03)
[2022-08-27] MEDS: DOXYCYCLINE 100MG/250ML 250 ML IV SCH ×2 (08:40→22:41)
[2022-08-27] MEDS: MULTIPLE VITAMIN TAB PO SCH (08:41)
[2022-08-27] MEDS: MAGNESIUM OXIDE 400 MG TAB PO SCH ×2 (08:41→22:30)
[2022-08-27] MEDS: FERROUS SULFATE 325mg EC TAB PO SCH (08:41)
[2022-08-27] MEDS: ENOXAPARIN SOD 30 MG/0.3 ML SYRINGE SC SCH (08:42)
[2022-08-27 08:53] LABS: BUN/Creatinine Ratio 24.5; Magnesium 1.9 mg/dL (1.6-2.6); Potassium 5.3 mmol/L (3.5-5.1)
[2022-08-27 09:00] VITALS: BP 129/69
[2022-08-27] MEDS ORDERED: SODIUM ZIRCONIUM CYCL 10 GM PAK PO ONE (11:45)
[2022-08-27 13:00] VITALS: BP 110/59
[2022-08-27 17:14] VITALS: BP 112/64
[2022-08-27 22:00] VITALS: BP 110/54
[2022-08-27] MEDS ORDERED: FUROSEMIDE 20 MG/2 ML VIAL IV SCH (22:00)
[2022-08-28 05:00] VITALS: BP 115/57
[2022-08-28] MEDS: SODIUM CHLOR 0.9% PF (SALINE LOCK) 10ML VIAL/SYR IV SCH ×2 (05:46→14:00)
[2022-08-28 05:47] LABS: BUN/Creatinine Ratio 26.3; Calcium 9.1 mg/dL (8.5-10.1); Potassium 4.9 mmol/L (3.5-5.1)
[2022-08-28] MEDS: SILDENAFIL CITRATE 20 MG TAB PO SCH ×2 (08:00→14:00)
[2022-08-28] MEDS: DOXYCYCLINE 100MG/250ML 250 ML IV SCH (09:05)
[2022-08-28] MEDS: FERROUS SULFATE 325mg EC TAB PO SCH (09:06)
[2022-08-28] MEDS: MULTIPLE VITAMIN TAB PO SCH (09:06)
[2022-08-28] MEDS: MAGNESIUM OXIDE 400 MG TAB PO SCH (09:06)
[2022-08-28] MEDS ORDERED: APIXABAN 5 MG TAB PO SCH (10:00)
[2022-08-28] MEDS ORDERED: FUROSEMIDE 40 MG/4 ML VIAL IV SCH (10:00)
[2022-08-28] MEDS ORDERED: ENOXAPARIN SOD 30 MG/0.3 ML SYRINGE SC SCH (10:00)
[2022-08-28] MEDS ORDERED: DOXY150C2 PO (11:51)
[2022-08-28] MEDS ORDERED: APIX2.5T PO (11:51)
[2022-08-28] MEDS ORDERED: FURO40TA4 PO (11:51)
[2022-08-28] MEDS ORDERED: MULTTAB99 PO (11:51)
[2022-08-28 12:24] VITALS: BP 109/38
[2022-08-28 12:30] VITALS: BP 105/49
== END 2022-08-28 15:20 | disposition home health service (06) | DRG 177 ==
LOC: ER 13:16 → OVERFLOW 17:57 → TELE-CENTR 08-23 13:27 → EAST 08-23 13:56 → TELE-CENTR 08-23 14:16
PROVIDERS: ADMIT Nurse Practitioner Family; ATTEND Internal Medicine
PROC: 5A0935A Assistance with Respiratory Ventilation, Less than 24 Consecutive Hours, High Flow/Velocity Cannula (ICD-10-PCS; 2022-08-23)
PROC: 0WP900Z Removal of Drainage Device from Right Pleural Cavity, Open Approach (ICD-10-PCS; principal; 2022-08-24)
PROC: 5A0935A Assistance with Respiratory Ventilation, Less than 24 Consecutive Hours, High Flow/Velocity Cannula (ICD-10-PCS; 2022-08-24)
DX: J15.6 Pneumonia due to other Gram-negative bacteria (principal); E43 Unspecified severe protein-calorie malnutrition; I50.43 Acute on chronic combined systolic (congestive) and diastolic (congestive) heart failure; J96.21 Acute and chronic respiratory failure with hypoxia; N17.0 Acute kidney failure with tubular necrosis; I13.0 Hypertensive heart and chronic kidney disease with heart failure and stage 1 through stage 4 chronic kidney disease, or unspecified chronic kidney disease; Z68.1 Body mass index [BMI] 19.9 or less, adult; J98.11 Atelectasis; J18.9 Pneumonia, unspecified organism; D63.1 Anemia in chronic kidney disease; I27.20 Pulmonary hypertension, unspecified; J84.10 Pulmonary fibrosis, unspecified; M71.21 Synovial cyst of popliteal space [Baker], right knee; Z20.822 Contact with and (suspected) exposure to COVID-19; N18.32 Chronic kidney disease, stage 3b; E87.5 Hyperkalemia; I48.0 Paroxysmal atrial fibrillation; R04.0 Epistaxis; Z86.16 Personal history of COVID-19; Z88.0 Allergy status to penicillin; Z79.899 Other long term (current) drug therapy; Z99.81 Dependence on supplemental oxygen
CPT/HCPCS: 36415; 36600; 71045; 71250; 76775; 80048; 80053; 81003; 82306; 82805; 83540; 83550; 83735; 83880; 83970; 84100; 84484; 85007; 85025; 85027; 85610; 85730; 87045; 87426; 87427; 87493; 87804; 93005; 93970; 96374; 96375; 96376; 97110; 97116; 97163; 97530; G0378; J1956; J2001; J3490

== ENCOUNTER 2022-09-03 12:40 | Inpatient (IN) | payer MEDICARE, BC ==
[~2022-09-03] VITALS: Ht 165.1 cm; Wt 58.4 kg
[~2022-09-03 12:40] MED LIST changes: +APIX2.5T PO; -APIX5TAB4 PO; -AZIT500T66 PO; -DICY20TA2 PO; +DOXY150C2 PO; +MULTTAB99 PO
[2022-09-03] MEDS ORDERED: methylPREDNISolone SOD SUCC 125 MG/2 ML VL IV ONE (12:45)
[2022-09-03] MEDS ORDERED: FUROSEMIDE 40 MG/4 ML VIAL IV ONE (13:45)
[2022-09-03 14:01] LABS: Albumin 3.5 g/dL (3.4-5.0); Anion Gap 8 (5-15); Blood Urea Nitrogen 58 mg/dL (7-18); Calcium 9.4 mg/dL (8.5-10.1); Carbon Dioxide 23 mmol/L (21-32); Chloride 110 mmol/L (98-107); Glucose 99 mg/dL (74-106); Magnesium 2.2 mg/dL (1.6-2.6); Potassium 4.8 mmol/L (3.5-5.1); Sodium 141 mmol/L (136-145)
[2022-09-03 14:02] LABS: Lactic Acid w/Reflex 3.6 mmol/L (0.4-2.0)
[2022-09-03 14:03] LABS: Alanine Aminotransferase 17 U/L (13-56); Aspartate Aminotransferase 20 U/L (15-37); BUN/Creatinine Ratio 27.8; GFR African American 29 mL/min; GFR Non-African American 24 mL/min
[2022-09-03 14:06] LABS: Alkaline Phosphatase 99 U/L (45-117); Bilirubin, Total 0.5 mg/dL (0.2-1.0); Total Protein 8.5 g/dL (6.4-8.2)
[2022-09-03] MEDS ORDERED: AZITHROMYCIN 500MG/ 250ML 250 ML IV ONE (14:30)
[2022-09-03 14:41] LABS: Basophils # (auto) 0.1 10 ^3/uL (0-0.2); Basophils % (auto) 1.7 % (0.0-2.0); Eosinophils # (auto) 0.2 10 ^3/uL (0-0.8); Hematocrit 30.2 % (36.0-46.0); Hemoglobin 9.8 g/dL (12.2-16.2); Lymphocytes # (auto) 0.6 10 ^3/uL (0.4-5.4); Lymphocytes % (auto) 19.9 % (10.0-50.0); Mean Corpuscular Hemoglobin 28.9 pg (28.0-32.0); Mean Corpuscular Hgb Conc. 32.5 g/dL (32.0-36.0); Mean Corpuscular Volume 88.8 fL (80.0-100.0); Monocytes # (auto) 0.3 10 ^3/uL (0-1.3); Monocytes % (auto) 9.7 % (0.0-12.0); Neutrophils # (auto) 1.9 10 ^3/uL (1.6-8.6); Neutrophils % (auto) 63.7 % (37.0-80.0); Nucleated Red Blood Cells % 0.3 %; Red Cell Distribution Width 19.5 % (11.8-14.3)
[2022-09-03] MEDS ORDERED: MORPHINE SULFATE INJ 2 MG/ml SYRG IV PRN (16:30)
[2022-09-03] MEDS ORDERED: cefTRIAXone 1GM/50ML D5W 50 ML IV ONE (16:30)
[2022-09-03] MEDS ORDERED: SODIUM CHLORIDE 0.9% 1,000 ML IV ONE (16:30)
[2022-09-03] MEDS ORDERED: IPRATROPIUM BROM 0.5 MG/2.5ML INH SOL NEB PRN (16:30)
[2022-09-03] MEDS ORDERED: HEPARIN SODIUM (PORCINE) 5000 UNITS/ML 1ML VIAL IV ONE (16:30)
[2022-09-03] MEDS ORDERED: ALBUTEROL SULF 2.5 MG/0.5ML(0.5%) NEB SOLN NEB PRN (16:30)
[2022-09-03] MEDS ORDERED: NITROGLYCERIN 0.4 MG SL TAB SL PRN (16:30)
[2022-09-03] MEDS ORDERED: VANCOMYCIN PER PHARMACY 0 MG IV SCH (17:15)
[2022-09-03] MEDS ORDERED: PIPERACILLIN-TAZOB 2.25GM 50 ML IV SCH (18:00)
[2022-09-03] MEDS ORDERED: ALBUTEROL MEDNEB 2.5 mg/3ml NEB ONE (18:04)
[2022-09-03] MEDS ORDERED: HEPARIN DRIP/D5W 100UNITS/ML 250 ML IV SCH (18:30)
[2022-09-03] MEDS: ALBUTEROL SULF 2.5 MG/0.5ML(0.5%) NEB SOLN NEB SCH (18:57)
[2022-09-03] MEDS: IPRATROPIUM BROM 0.5 MG/2.5ML INH SOL NEB SCH (18:57)
[2022-09-03] MEDS ORDERED: VANCOMYCIN 1GM/250ML 250 ML IV ONE (19:00)
[2022-09-03 19:17] VITALS: BP 148/35
[2022-09-03 19:17] LABS: Basophils # (auto) 0 10 ^3/uL (0-0.2); Basophils % (auto) 0.5 % (0.0-2.0); Eosinophils # (auto) 0 10 ^3/uL (0-0.8); Eosinophils % (auto) 0.2 % (0.0-7.0); Hematocrit 31.9 % (36.0-46.0); Hemoglobin 10.2 g/dL (12.2-16.2); Lymphocytes # (auto) 0.2 10 ^3/uL (0.4-5.4); Lymphocytes % (auto) 5.9 % (10.0-50.0); Mean Corpuscular Hemoglobin 28.6 pg (28.0-32.0); Mean Corpuscular Hgb Conc. 32.1 g/dL (32.0-36.0); Monocytes # (auto) 0.1 10 ^3/uL (0-1.3); Monocytes % (auto) 2.2 % (0.0-12.0); Neutrophils # (auto) 2.6 10 ^3/uL (1.6-8.6); Neutrophils % (auto) 91.2 % (37.0-80.0); Nucleated Red Blood Cells % 0.3 %; Red Blood Cells 3.59 10^6/uL (4.0-5.20); Red Cell Distribution Width 19.1 % (11.8-14.3); White Blood Cell 2.8 10^3/uL (4.4-10.8)
[2022-09-03 19:33] LABS: INR 1.12 (0.9-1.15); Partial Thromboplastin Time 32.1 sec (24.6-33.4)
[2022-09-03 19:36] LABS: Cholesterol 159 mg/dL (< 200); HDL Cholesterol 98 mg/dL (40-59); LDL Cholesterol 60 mg/dL (< 100); Triglycerides 47 mg/dL (< 150)
[2022-09-03] MEDS: FUROSEMIDE 40 MG/4 ML VIAL IV SCH (20:12)
[2022-09-03] MEDS: levoFLOXacin 500MG 100 ML IV SCH (22:48)
[2022-09-03] MEDS ORDERED: MIRTAZAPINE 30 MG TAB PO ONE (23:00)
[2022-09-04 01:28] LABS: INR 1.15 (0.9-1.15)
[2022-09-04 01:39] LABS: Partial Thromboplastin Time > 139.0 sec (24.6-33.4)
[2022-09-04] MEDS ORDERED: HEPARIN DRIP/D5W 100UNITS/ML 250 ML IV SCH (02:45)
[2022-09-04] MEDS ORDERED: ALBUTEROL MEDNEB 2.5 mg/3ml NEB ONE ×3 (05:16→18:21)
[2022-09-04] MEDS: IPRATROPIUM BROM 0.5 MG/2.5ML INH SOL NEB SCH ×3 (05:16→18:31)
[2022-09-04] MEDS: ALBUTEROL SULF 2.5 MG/0.5ML(0.5%) NEB SOLN NEB SCH ×3 (05:17→18:31)
[2022-09-04] MEDS: FUROSEMIDE 40 MG/4 ML VIAL IV SCH ×2 (06:10→18:08)
[2022-09-04 06:15] LABS: Basophils # (auto) 0 10 ^3/uL (0-0.2); Basophils % (auto) 0.5 % (0.0-2.0); Eosinophils # (auto) 0 10 ^3/uL (0-0.8); Hematocrit 28.8 % (36.0-46.0); Hemoglobin 9.6 g/dL (12.2-16.2); Lymphocytes # (auto) 0.3 10 ^3/uL (0.4-5.4); Lymphocytes % (auto) 14.8 % (10.0-50.0); Mean Corpuscular Hemoglobin 29.3 pg (28.0-32.0); Mean Corpuscular Hgb Conc. 33.2 g/dL (32.0-36.0); Mean Corpuscular Volume 88.2 fL (80.0-100.0); Monocytes # (auto) 0.2 10 ^3/uL (0-1.3); Neutrophils # (auto) 1.5 10 ^3/uL (1.6-8.6); Neutrophils % (auto) 75.7 % (37.0-80.0); Nucleated Red Blood Cells % 0.2 %; Red Blood Cells 3.26 10^6/uL (4.0-5.20); Red Cell Distribution Width 19.1 % (11.8-14.3)
[2022-09-04 06:29] LABS: Calcium 7.6 mg/dL (8.5-10.1); Potassium 5.1 mmol/L (3.5-5.1)
[2022-09-04 06:34] LABS: Albumin 3.3 g/dL (3.4-5.0); BUN/Creatinine Ratio 31.8; Bilirubin, Total 0.5 mg/dL (0.2-1.0); Total Protein 7.4 g/dL (6.4-8.2)
[2022-09-04] MEDS ORDERED: cefTRIAXone 1GM/50ML D5W 50 ML IV SCH (09:00)
[2022-09-04] MEDS ORDERED: PANTOPRAZOLE 40 MG/10 ML VIAL INJ IV SCH (10:00)
[2022-09-04 10:20] LABS: INR 1.11 (0.9-1.15); Partial Thromboplastin Time 51.5 sec (24.6-33.4)
[2022-09-04] MEDS: FERROUS SULFATE 325mg EC TAB PO SCH (10:29)
[2022-09-04] MEDS: MULTIPLE VITAMIN TAB PO SCH (10:29)
[2022-09-04 12:07] LABS: Urine Bacteria NONE SEEN /hpf (None Seen); Urine Blood 2+ /uL (Negative); Urine Hyaline Cast FEW /lpf (0 - 2); Urine Specific Gravity 1.007 (1.001-1.035); Urine WBC 2 /hpf (0 - 5)
[2022-09-04] MEDS: SILDENAFIL CITRATE 20 MG TAB PO SCH ×2 (14:14→20:17)
[2022-09-04 14:39] LABS: Creatinine, Urine 14.2 mg/dL (30.0-125.0)
[2022-09-04 14:40] LABS: Protein, Urine 20.6 mg/dL (0.0-11.9)
[2022-09-04] MEDS: APIXABAN 2.5 MG TAB PO SCH (22:10)
[2022-09-04] MEDS: MIRTAZAPINE 30 MG TAB PO SCH (22:10)
[2022-09-05] MEDS ORDERED: ALBUTEROL MEDNEB 2.5 mg/3ml NEB ONE ×3 (05:37→18:09)
[2022-09-05] MEDS: FUROSEMIDE 40 MG/4 ML VIAL IV SCH ×2 (06:00→18:38)
[2022-09-05] MEDS: IPRATROPIUM BROM 0.5 MG/2.5ML INH SOL NEB SCH ×3 (07:08→19:53)
[2022-09-05] MEDS: ALBUTEROL SULF 2.5 MG/0.5ML(0.5%) NEB SOLN NEB SCH ×3 (07:08→19:53)
[2022-09-05] MEDS: MULTIPLE VITAMIN TAB PO SCH (09:21)
[2022-09-05] MEDS: FERROUS SULFATE 325mg EC TAB PO SCH (09:21)
[2022-09-05] MEDS: SILDENAFIL CITRATE 20 MG TAB PO SCH ×3 (09:21→20:29)
[2022-09-05] MEDS: PANTOPRAZOLE 40 MG TAB PO SCH (09:21)
[2022-09-05] MEDS: APIXABAN 2.5 MG TAB PO SCH ×2 (09:21→22:00)
[2022-09-05 10:38] LABS: BUN/Creatinine Ratio 30.4; Calcium 8.7 mg/dL (8.5-10.1); Potassium 4.8 mmol/L (3.5-5.1)
[2022-09-05] MEDS ORDERED: methylPREDNISolone SOD SUCC 125 MG/2 ML VL IV ONE (13:30)
[2022-09-05] MEDS: DOXYCYCLINE 100MG/250ML 250 ML IV SCH (13:45)
[2022-09-05 17:00] VITALS: BP 120/50
[2022-09-05] MEDS: levoFLOXacin 500MG 100 ML IV SCH (18:38)
[2022-09-05 20:00] VITALS: BP 101/57
[2022-09-05 22:00] VITALS: BP 101/57
[2022-09-05] MEDS: MIRTAZAPINE 30 MG TAB PO SCH (22:01)
[2022-09-06] VITALS (7 sets, daily range): BP systolic 101–147; BP diastolic 50–75
[2022-09-06] MEDS: DOXYCYCLINE 100MG/250ML 250 ML IV SCH ×2 (01:58→14:09)
[2022-09-06] MEDS: FUROSEMIDE 40 MG/4 ML VIAL IV SCH ×2 (05:46→17:18)
[2022-09-06] MEDS: ALBUTEROL SULF 2.5 MG/0.5ML(0.5%) NEB SOLN NEB SCH ×3 (06:00→18:30)
[2022-09-06] MEDS ORDERED: ALBUTEROL MEDNEB 2.5 mg/3ml NEB ONE ×3 (06:17→17:17)
[2022-09-06 06:26] LABS: BUN/Creatinine Ratio 34.7; Calcium 8.6 mg/dL (8.5-10.1); Potassium 5.2 mmol/L (3.5-5.1)
[2022-09-06] MEDS: IPRATROPIUM BROM 0.5 MG/2.5ML INH SOL NEB SCH ×3 (07:57→18:30)
[2022-09-06] MEDS: MULTIPLE VITAMIN TAB PO SCH (08:49)
[2022-09-06] MEDS: PANTOPRAZOLE 40 MG TAB PO SCH (08:49)
[2022-09-06] MEDS: FERROUS SULFATE 325mg EC TAB PO SCH (08:50)
[2022-09-06] MEDS: APIXABAN 2.5 MG TAB PO SCH ×2 (08:50→21:38)
[2022-09-06] MEDS: SILDENAFIL CITRATE 20 MG TAB PO SCH ×3 (08:50→21:38)
[2022-09-06] MEDS ORDERED: IPRATROPIUM BROM 0.5 MG/2.5ML INH SOL ONE (17:17)
[2022-09-06] MEDS: MIRTAZAPINE 30 MG TAB PO SCH (21:39)
[2022-09-07] VITALS (7 sets, daily range): BP systolic 117–138; BP diastolic 25–68
[2022-09-07] MEDS: DOXYCYCLINE 100MG/250ML 250 ML IV SCH ×2 (01:26→14:15)
[2022-09-07] MEDS: FUROSEMIDE 40 MG/4 ML VIAL IV SCH (05:39)
[2022-09-07] MEDS: IPRATROPIUM BROM 0.5 MG/2.5ML INH SOL NEB SCH ×3 (06:09→18:37)
[2022-09-07] MEDS: ALBUTEROL SULF 2.5 MG/0.5ML(0.5%) NEB SOLN NEB SCH ×3 (06:09→18:37)
[2022-09-07 06:25] LABS: BUN/Creatinine Ratio 34.5; Calcium 8.9 mg/dL (8.5-10.1); Potassium 5.4 mmol/L (3.5-5.1)
[2022-09-07] MEDS: SILDENAFIL CITRATE 20 MG TAB PO SCH ×3 (08:00→21:49)
[2022-09-07] MEDS: MULTIPLE VITAMIN TAB PO SCH (10:31)
[2022-09-07] MEDS: PANTOPRAZOLE 40 MG TAB PO SCH (10:31)
[2022-09-07] MEDS: cefTRIAXone 1GM/50ML D5W 50 ML IV SCH ×2 (10:31→11:23)
[2022-09-07] MEDS: APIXABAN 2.5 MG TAB PO SCH ×2 (10:31→21:49)
[2022-09-07] MEDS: FERROUS SULFATE 325mg EC TAB PO SCH (10:31)
[2022-09-07 12:08] LABS: Urine Bacteria FEW /hpf (None Seen); Urine Blood TRACE /uL (Negative); Urine Hyaline Cast FEW /lpf (0 - 2); Urine Specific Gravity 1.008 (1.001-1.035); Urine WBC <1 /hpf (0 - 5)
[2022-09-07] MEDS: MIRTAZAPINE 30 MG TAB PO SCH (21:49)
[2022-09-08] MEDS: DOXYCYCLINE 100MG/250ML 250 ML IV SCH ×2 (03:08→14:03)
[2022-09-08 05:00] VITALS: BP 113/64
[2022-09-08] MEDS: ONDANSETRON HCL 4 MG/2 ML VIAL IV PRN ×2 (05:22→20:11)
[2022-09-08] MEDS: FUROSEMIDE 40 MG/4 ML VIAL IV SCH (05:50)
[2022-09-08] MEDS ORDERED: ALBUTEROL MEDNEB 2.5 mg/3ml NEB ONE ×3 (05:54→18:09)
[2022-09-08] MEDS: ALBUTEROL SULF 2.5 MG/0.5ML(0.5%) NEB SOLN NEB SCH ×3 (06:27→18:22)
[2022-09-08] MEDS: IPRATROPIUM BROM 0.5 MG/2.5ML INH SOL NEB SCH ×3 (06:27→18:22)
[2022-09-08 07:38] LABS: Potassium 4.5 mmol/L (3.5-5.1)
[2022-09-08 07:47] LABS: Albumin 3.2 g/dL (3.4-5.0); Bilirubin, Total 0.5 mg/dL (0.2-1.0); Calcium 8.5 mg/dL (8.5-10.1); Total Protein 7.3 g/dL (6.4-8.2)
[2022-09-08 08:00] VITALS: BP 108/53
[2022-09-08] MEDS: SILDENAFIL CITRATE 20 MG TAB PO SCH ×3 (08:00→21:37)
[2022-09-08 09:00] VITALS: BP 108/53
[2022-09-08] MEDS: FERROUS SULFATE 325mg EC TAB PO SCH (12:16)
[2022-09-08] MEDS: cefTRIAXone 1GM/50ML D5W 50 ML IV SCH (12:16)
[2022-09-08] MEDS: APIXABAN 2.5 MG TAB PO SCH ×2 (12:16→21:37)
[2022-09-08] MEDS: PANTOPRAZOLE 40 MG TAB PO SCH (12:17)
[2022-09-08] MEDS: MULTIPLE VITAMIN TAB PO SCH (12:17)
[2022-09-08 13:00] VITALS: BP 106/61
[2022-09-08 17:00] VITALS: BP 113/58
[2022-09-08 22:00] VITALS: BP 124/52
[2022-09-09] VITALS (7 sets, daily range): BP systolic 83–116; BP diastolic 38–58
[2022-09-09] MEDS: DOXYCYCLINE 100MG/250ML 250 ML IV SCH ×2 (02:11→13:49)
[2022-09-09] MEDS: FUROSEMIDE 40 MG/4 ML VIAL IV SCH (06:06)
[2022-09-09] MEDS ORDERED: ALBUTEROL MEDNEB 2.5 mg/3ml NEB ONE ×3 (06:43→18:07)
[2022-09-09] MEDS: ALBUTEROL SULF 2.5 MG/0.5ML(0.5%) NEB SOLN NEB SCH ×3 (07:18→19:27)
[2022-09-09] MEDS: IPRATROPIUM BROM 0.5 MG/2.5ML INH SOL NEB SCH ×3 (07:18→19:27)
[2022-09-09 07:20] LABS: Basophils # (auto) 0 10 ^3/uL (0-0.2); Basophils % (auto) 0.6 % (0.0-2.0); Eosinophils # (auto) 0.1 10 ^3/uL (0-0.8); Eosinophils % (auto) 1.9 % (0.0-7.0); Hematocrit 28.3 % (36.0-46.0); Hemoglobin 9.3 g/dL (12.2-16.2); Lymphocytes # (auto) 0.5 10 ^3/uL (0.4-5.4); Lymphocytes % (auto) 10.8 % (10.0-50.0); Mean Corpuscular Hgb Conc. 32.9 g/dL (32.0-36.0); Monocytes # (auto) 0.4 10 ^3/uL (0-1.3); Monocytes % (auto) 8.7 % (0.0-12.0); Neutrophils # (auto) 3.3 10 ^3/uL (1.6-8.6); Red Blood Cells 3.22 10^6/uL (4.0-5.20); Red Cell Distribution Width 18.2 % (11.8-14.3); White Blood Cell 4.3 10^3/uL (4.4-10.8)
[2022-09-09 07:41] LABS: BUN/Creatinine Ratio 35.5; Calcium 8.3 mg/dL (8.5-10.1)
[2022-09-09 07:59] LABS: Potassium 5.9 mmol/L (3.5-5.1)
[2022-09-09] MEDS: SILDENAFIL CITRATE 20 MG TAB PO SCH ×3 (09:11→20:26)
[2022-09-09] MEDS: FERROUS SULFATE 325mg EC TAB PO SCH (09:11)
[2022-09-09] MEDS: PANTOPRAZOLE 40 MG TAB PO SCH (09:11)
[2022-09-09] MEDS: APIXABAN 2.5 MG TAB PO SCH ×2 (09:11→22:21)
[2022-09-09] MEDS: cefTRIAXone 1GM/50ML D5W 50 ML IV SCH (09:11)
[2022-09-09] MEDS: MULTIPLE VITAMIN TAB PO SCH (09:12)
[2022-09-09] MEDS: SODIUM ZIRCONIUM CYCL 10 GM PAK PO SCH ×3 (09:30→22:21)
[2022-09-09 19:53] LABS: BUN/Creatinine Ratio 31.8
[2022-09-09] MEDS ORDERED: diphenhdrAMINE HCL 50 MG/1 ML VL IV ONE (22:45)
[2022-09-10] MEDS: DOXYCYCLINE 100MG/250ML 250 ML IV SCH (01:45)
[2022-09-10 05:00] VITALS: BP 106/61
[2022-09-10] MEDS ORDERED: ALBUTEROL MEDNEB 2.5 mg/3ml NEB ONE ×2 (05:54→11:17)
[2022-09-10] MEDS: SODIUM ZIRCONIUM CYCL 10 GM PAK PO SCH ×3 (05:55→21:03)
[2022-09-10 06:00] LABS: Potassium 5.1 mmol/L (3.5-5.1)
[2022-09-10 06:07] LABS: Albumin 3.2 g/dL (3.4-5.0); BUN/Creatinine Ratio 35.7; Bilirubin, Total 0.7 mg/dL (0.2-1.0); Calcium 7.8 mg/dL (8.5-10.1); Total Protein 6.8 g/dL (6.4-8.2)
[2022-09-10] MEDS: ALBUTEROL SULF 2.5 MG/0.5ML(0.5%) NEB SOLN NEB SCH ×3 (06:41→23:02)
[2022-09-10] MEDS: IPRATROPIUM BROM 0.5 MG/2.5ML INH SOL NEB SCH ×3 (06:41→23:02)
[2022-09-10 09:00] VITALS: BP 130/59
[2022-09-10] MEDS: cefTRIAXone 1GM/50ML D5W 50 ML IV SCH (09:23)
[2022-09-10] MEDS: FERROUS SULFATE 325mg EC TAB PO SCH (09:24)
[2022-09-10] MEDS: APIXABAN 2.5 MG TAB PO SCH ×2 (09:24→21:03)
[2022-09-10] MEDS: PANTOPRAZOLE 40 MG TAB PO SCH (09:24)
[2022-09-10] MEDS: MULTIPLE VITAMIN TAB PO SCH (09:25)
[2022-09-10] MEDS: SILDENAFIL CITRATE 20 MG TAB PO SCH ×3 (09:25→19:58)
[2022-09-10] MEDS ORDERED: methylPREDNISolone SOD SUCC 40 MG/ML VL IV ONE (10:45)
[2022-09-10 13:00] VITALS: BP 106/56
[2022-09-10] MEDS: methylPREDNISolone SOD SUCC 40 MG/ML VL IV SCH ×2 (14:56→21:03)
[2022-09-10 17:00] VITALS: BP 92/51
[2022-09-10] MEDS: DOXYCYCLINE 100 MG TAB/CAP PO SCH (21:03)
[2022-09-10 22:00] VITALS: BP 113/60
[2022-09-10] MEDS ORDERED: LORazepam 2MG/ML-1ML VIAL IV PRN (22:00)
[2022-09-10] MEDS: MIRTAZAPINE 30 MG TAB PO SCH (22:26)
[2022-09-11 05:00] VITALS: BP 119/57
[2022-09-11] MEDS: SODIUM ZIRCONIUM CYCL 10 GM PAK PO SCH ×3 (05:44→21:04)
[2022-09-11] MEDS: methylPREDNISolone SOD SUCC 40 MG/ML VL IV SCH ×2 (05:44→21:04)
[2022-09-11 06:01] LABS: Basophils # (auto) 0 10 ^3/uL (0-0.2); Basophils % (auto) 0.2 % (0.0-2.0); Eosinophils # (auto) 0 10 ^3/uL (0-0.8); Hematocrit 28.9 % (36.0-46.0); Hemoglobin 9.3 g/dL (12.2-16.2); Lymphocytes # (auto) 0.2 10 ^3/uL (0.4-5.4); Lymphocytes % (auto) 11.2 % (10.0-50.0); Mean Corpuscular Hemoglobin 28.6 pg (28.0-32.0); Mean Corpuscular Hgb Conc. 32.3 g/dL (32.0-36.0); Mean Corpuscular Volume 88.6 fL (80.0-100.0); Monocytes # (auto) 0.1 10 ^3/uL (0-1.3); Neutrophils # (auto) 1.7 10 ^3/uL (1.6-8.6); Neutrophils % (auto) 82.6 % (37.0-80.0); Red Blood Cells 3.27 10^6/uL (4.0-5.20); Red Cell Distribution Width 18.2 % (11.8-14.3); White Blood Cell 2.1 10^3/uL (4.4-10.8)
[2022-09-11 06:21] LABS: BUN/Creatinine Ratio 39.6; Calcium 8.6 mg/dL (8.5-10.1); Potassium 5.4 mmol/L (3.5-5.1)
[2022-09-11] MEDS: ALBUTEROL SULF 2.5 MG/0.5ML(0.5%) NEB SOLN NEB SCH ×3 (06:21→19:16)
[2022-09-11] MEDS: IPRATROPIUM BROM 0.5 MG/2.5ML INH SOL NEB SCH ×3 (06:21→19:16)
[2022-09-11 08:30] VITALS: BP 128/58
[2022-09-11] MEDS ORDERED: SODIUM ZIRCONIUM CYCL 10 GM PAK PO ONE (08:30)
[2022-09-11 09:00] VITALS: BP 128/58
[2022-09-11] MEDS: MULTIPLE VITAMIN TAB PO SCH (09:51)
[2022-09-11] MEDS: FERROUS SULFATE 325mg EC TAB PO SCH (09:51)
[2022-09-11] MEDS: PANTOPRAZOLE 40 MG TAB PO SCH (09:51)
[2022-09-11] MEDS: cefTRIAXone 1GM/50ML D5W 50 ML IV SCH (09:51)
[2022-09-11] MEDS: APIXABAN 2.5 MG TAB PO SCH ×2 (09:51→21:00)
[2022-09-11] MEDS: DOXYCYCLINE 100 MG TAB/CAP PO SCH ×2 (09:51→21:00)
[2022-09-11] MEDS: SILDENAFIL CITRATE 20 MG TAB PO SCH ×3 (09:51→20:20)
[2022-09-11 13:00] VITALS: BP 104/59
[2022-09-11 17:01] VITALS: BP 100/44
[2022-09-11] MEDS: SALINE 0.65 % NASAL SPRAY 45ML BOTTLE EACHNOSTRI SCH ×2 (18:25→21:04)
[2022-09-11] MEDS ORDERED: ALBUTEROL MEDNEB 2.5 mg/3ml NEB ONE (19:02)
[2022-09-11] MEDS: MIRTAZAPINE 30 MG TAB PO SCH (20:59)
[2022-09-11 22:00] VITALS: BP 137/71
[2022-09-12 05:00] VITALS: BP 143/79
[2022-09-12] MEDS: SALINE 0.65 % NASAL SPRAY 45ML BOTTLE EACHNOSTRI SCH ×4 (05:36→21:27)
[2022-09-12] MEDS: SODIUM ZIRCONIUM CYCL 10 GM PAK PO SCH ×3 (05:45→21:16)
[2022-09-12] MEDS ORDERED: ALBUTEROL MEDNEB 2.5 mg/3ml NEB ONE ×3 (05:56→18:43)
[2022-09-12] MEDS: ALBUTEROL SULF 2.5 MG/0.5ML(0.5%) NEB SOLN NEB SCH ×3 (06:14→20:29)
[2022-09-12] MEDS: IPRATROPIUM BROM 0.5 MG/2.5ML INH SOL NEB SCH ×3 (06:14→20:29)
[2022-09-12 06:18] LABS: Calcium 8.5 mg/dL (8.5-10.1); Potassium 4.8 mmol/L (3.5-5.1)
[2022-09-12 07:00] LABS: Basophils # (auto) 0 10 ^3/uL (0-0.2); Basophils % (auto) 0.2 % (0.0-2.0); Eosinophils # (auto) 0 10 ^3/uL (0-0.8); Eosinophils % (auto) 0.1 % (0.0-7.0); Hematocrit 29.5 % (36.0-46.0); Hemoglobin 9.6 g/dL (12.2-16.2); Lymphocytes # (auto) 0.1 10 ^3/uL (0.4-5.4); Lymphocytes % (auto) 3.1 % (10.0-50.0); Mean Corpuscular Hemoglobin 28.6 pg (28.0-32.0); Mean Corpuscular Hgb Conc. 32.3 g/dL (32.0-36.0); Mean Corpuscular Volume 88.5 fL (80.0-100.0); Monocytes # (auto) 0.1 10 ^3/uL (0-1.3); Monocytes % (auto) 2.4 % (0.0-12.0); Neutrophils # (auto) 3.6 10 ^3/uL (1.6-8.6); Neutrophils % (auto) 94.2 % (37.0-80.0); Nucleated Red Blood Cells % 0.3 %; Red Blood Cells 3.34 10^6/uL (4.0-5.20); White Blood Cell 3.8 10^3/uL (4.4-10.8)
[2022-09-12 08:10] VITALS: BP 121/65
[2022-09-12] MEDS: DOXYCYCLINE 100 MG TAB/CAP PO SCH ×2 (09:03→21:16)
[2022-09-12] MEDS: PANTOPRAZOLE 40 MG TAB PO SCH (09:04)
[2022-09-12] MEDS: MULTIPLE VITAMIN TAB PO SCH (09:04)
[2022-09-12] MEDS: SILDENAFIL CITRATE 20 MG TAB PO SCH ×3 (09:04→21:16)
[2022-09-12] MEDS: APIXABAN 2.5 MG TAB PO SCH ×2 (09:04→21:16)
[2022-09-12] MEDS: FERROUS SULFATE 325mg EC TAB PO SCH (09:04)
[2022-09-12] MEDS: cefTRIAXone 1GM/50ML D5W 50 ML IV SCH (09:13)
[2022-09-12] MEDS: methylPREDNISolone SOD SUCC 40 MG/ML VL IV SCH ×2 (09:14→21:16)
[2022-09-12 12:05] VITALS: BP 122/52
[2022-09-12 16:49] VITALS: BP 140/70
[2022-09-12] MEDS: DONEPEZIL HYDROCHLORIDE 5 MG TAB PO SCH (21:16)
[2022-09-12] MEDS: MIRTAZAPINE 30 MG TAB PO SCH (21:17)
[2022-09-12 22:00] VITALS: BP 116/48
[2022-09-13 05:00] VITALS: BP 121/86
[2022-09-13] MEDS: SODIUM ZIRCONIUM CYCL 10 GM PAK PO SCH (05:54)
[2022-09-13 06:00] LABS: Basophils # (auto) 0 10 ^3/uL (0-0.2); Basophils % (auto) 0.2 % (0.0-2.0); Eosinophils # (auto) 0 10 ^3/uL (0-0.8); Eosinophils % (auto) 0.7 % (0.0-7.0); Hematocrit 28.5 % (36.0-46.0); Hemoglobin 9.3 g/dL (12.2-16.2); Lymphocytes # (auto) 0.2 10 ^3/uL (0.4-5.4); Lymphocytes % (auto) 5.3 % (10.0-50.0); Mean Corpuscular Hemoglobin 29.3 pg (28.0-32.0); Mean Corpuscular Hgb Conc. 32.8 g/dL (32.0-36.0); Mean Corpuscular Volume 89.5 fL (80.0-100.0); Monocytes # (auto) 0.1 10 ^3/uL (0-1.3); Monocytes % (auto) 3.3 % (0.0-12.0); Neutrophils # (auto) 2.7 10 ^3/uL (1.6-8.6); Neutrophils % (auto) 90.5 % (37.0-80.0); Nucleated Red Blood Cells % 0.1 %; Red Blood Cells 3.19 10^6/uL (4.0-5.20); Red Cell Distribution Width 18.3 % (11.8-14.3)
[2022-09-13 06:17] LABS: BUN/Creatinine Ratio 49.2; Calcium 8.5 mg/dL (8.5-10.1); Potassium 4.5 mmol/L (3.5-5.1)
[2022-09-13] MEDS: SALINE 0.65 % NASAL SPRAY 45ML BOTTLE EACHNOSTRI SCH ×4 (06:22→21:53)
[2022-09-13] MEDS ORDERED: ALBUTEROL MEDNEB 2.5 mg/3ml NEB ONE ×3 (06:51→17:54)
[2022-09-13] MEDS: IPRATROPIUM BROM 0.5 MG/2.5ML INH SOL NEB SCH ×3 (07:14→17:56)
[2022-09-13] MEDS: ALBUTEROL SULF 2.5 MG/0.5ML(0.5%) NEB SOLN NEB SCH ×3 (07:14→17:56)
[2022-09-13 08:10] VITALS: BP 118/59
[2022-09-13] MEDS: SILDENAFIL CITRATE 20 MG TAB PO SCH ×3 (08:39→21:48)
[2022-09-13] MEDS: cefTRIAXone 1GM/50ML D5W 50 ML IV SCH (08:40)
[2022-09-13] MEDS: MULTIPLE VITAMIN TAB PO SCH (08:47)
[2022-09-13] MEDS: PANTOPRAZOLE 40 MG TAB PO SCH (08:47)
[2022-09-13] MEDS: APIXABAN 2.5 MG TAB PO SCH ×2 (08:47→21:49)
[2022-09-13] MEDS: FERROUS SULFATE 325mg EC TAB PO SCH (08:47)
[2022-09-13] MEDS: DOXYCYCLINE 100 MG TAB/CAP PO SCH ×2 (08:47→21:48)
[2022-09-13] MEDS: methylPREDNISolone SOD SUCC 40 MG/ML VL IV SCH ×2 (08:48→21:48)
[2022-09-13 12:05] VITALS: BP 97/61
[2022-09-13 16:05] VITALS: BP 121/58
[2022-09-13 19:52] VITALS: BP 121/58
[2022-09-13] MEDS: DONEPEZIL HYDROCHLORIDE 5 MG TAB PO SCH (21:48)
[2022-09-13] MEDS: MIRTAZAPINE 30 MG TAB PO SCH (21:49)
[2022-09-13 22:00] VITALS: BP 117/53
[2022-09-14 05:00] VITALS: BP 129/45
[2022-09-14] MEDS ORDERED: ALBUTEROL MEDNEB 2.5 mg/3ml NEB ONE ×2 (06:00→11:40)
[2022-09-14] MEDS: SALINE 0.65 % NASAL SPRAY 45ML BOTTLE EACHNOSTRI SCH ×2 (06:48→13:48)
[2022-09-14] MEDS: ALBUTEROL SULF 2.5 MG/0.5ML(0.5%) NEB SOLN NEB SCH ×2 (07:18→11:57)
[2022-09-14] MEDS: IPRATROPIUM BROM 0.5 MG/2.5ML INH SOL NEB SCH ×2 (07:18→11:58)
[2022-09-14 08:57] VITALS: BP 124/69
[2022-09-14] MEDS: methylPREDNISolone SOD SUCC 40 MG/ML VL IV SCH (09:49)
[2022-09-14] MEDS: SILDENAFIL CITRATE 20 MG TAB PO SCH (09:50)
[2022-09-14] MEDS: PANTOPRAZOLE 40 MG TAB PO SCH (09:50)
[2022-09-14] MEDS: DOXYCYCLINE 100 MG TAB/CAP PO SCH (09:50)
[2022-09-14] MEDS: APIXABAN 2.5 MG TAB PO SCH (09:50)
[2022-09-14] MEDS: MULTIPLE VITAMIN TAB PO SCH (09:50)
[2022-09-14] MEDS: FERROUS SULFATE 325mg EC TAB PO SCH (09:50)
[2022-09-14] MEDS: cefTRIAXone 1GM/50ML D5W 50 ML IV SCH (09:53)
[2022-09-14 11:19] VITALS: BP 124/69
[2022-09-14 13:00] VITALS: BP 134/70
== END 2022-09-14 13:41 | disposition hospice, home (50) | DRG 291 ==
LOC: ER 12:40 → EDBD 12:40 → TELE 17:03 → EAST 09-05 15:11 → TELE-EAST 09-06 19:21
PROVIDERS: ADMIT Registered Nurse; ATTEND Internal Medicine
DX: I13.0 Hypertensive heart and chronic kidney disease with heart failure and stage 1 through stage 4 chronic kidney disease, or unspecified chronic kidney disease (principal); I50.33 Acute on chronic diastolic (congestive) heart failure; J96.21 Acute and chronic respiratory failure with hypoxia; N17.0 Acute kidney failure with tubular necrosis; N18.4 Chronic kidney disease, stage 4 (severe); J98.11 Atelectasis; F03.918 Unspecified dementia, unspecified severity, with other behavioral disturbance; D68.69 Other thrombophilia; Z51.5 Encounter for palliative care; Z20.822 Contact with and (suspected) exposure to COVID-19; E78.5 Hyperlipidemia, unspecified; D63.1 Anemia in chronic kidney disease; H91.90 Unspecified hearing loss, unspecified ear; I48.91 Unspecified atrial fibrillation; J47.9 Bronchiectasis, uncomplicated; I27.21 Secondary pulmonary arterial hypertension; D72.819 Decreased white blood cell count, unspecified; Z60.2 Problems related to living alone; G47.00 Insomnia, unspecified; F17.200 Nicotine dependence, unspecified, uncomplicated; E87.5 Hyperkalemia; J84.10 Pulmonary fibrosis, unspecified; Z85.038 Personal history of other malignant neoplasm of large intestine; Z85.05 Personal history of malignant neoplasm of liver; Z85.118 Personal history of other malignant neoplasm of bronchus and lung; Z88.0 Allergy status to penicillin; Z99.81 Dependence on supplemental oxygen; Z90.710 Acquired absence of both cervix and uterus; Z79.899 Other long term (current) drug therapy
CPT/HCPCS: 36415; 36600; 70450; 71045; 71250; 76775; 80048; 80053; 80061; 80202; 81001; 82306; 82570; 82805; 82962; 83036; 83605; 83735; 83880; 83970; 84100; 84156; 84300; 84443; 84484; 85025; 85379; 85610; 85730; 86141; 87040; 87426; 87804; 93005; 93970; 94640; 95819; 96365; 96375; 97110; 97116; 97163; 97530; 99291; C9113; G0378; J0696; J1956; J2405; J3490

== ENCOUNTER 2023-02-12 17:36 | Emergency (ER) | payer OTHER, MEDICARE, BC ==
[~2023-02-12] VITALS: Ht 167.6 cm; Wt 40.9 kg
[~2023-02-12 17:36] MED LIST changes: -DOXY150C2 PO; +DOXY150C4 PO; -MIRT-68 PO; +MIRT-93 PO
[2023-02-12] MEDS ORDERED: CALCIUM CHLOR(10%) 100MG/ML 10ML SYRINGE IV ONE (17:37)
[2023-02-12] MEDS ORDERED: DEXTROSE (50%) 50ML SYRG IV ONE (17:37)
[2023-02-12] MEDS ORDERED: EPINEPHrine HCL 1 MG/10 ML SYRG IV ONE (17:37)
[2023-02-12] MEDS ORDERED: SODIUM BICARBONATE 8.4% INJ 50ML SYRINGE IV ONE (17:37)
[2023-02-12] MEDS ORDERED: DOPamine 1600mCg/ml 400MG/250ml NSorD5 KIT/BAG IV ONE (17:37)
[2023-02-12] MEDS ORDERED: ETOMIDATE (2MG/ML) 20ML VIAL IV ONE (17:40)
[2023-02-12] MEDS ORDERED: SUCCINYLCHOLINE CHLORIDE 20 MG/ML 10ML VIAL IV ONE (17:40)
[2023-02-12] MEDS ORDERED: DexAMETHasone SOD PHOS 10MG/1ML VIAL INJ ONE (17:43)
[2023-02-12] MEDS ORDERED: EPINEPHrine HCL 1 MG/10 ML SYRG ONE ×2 (17:58→18:20)
[2023-02-12 18:05] VITALS: BP 155/84
== END 2023-02-12 18:34 ==
LOC: ER 17:36 → EDBD 17:36 → ER 18:34
DX: I46.9 Cardiac arrest, cause unspecified (principal); I13.0 Hypertensive heart and chronic kidney disease with heart failure and stage 1 through stage 4 chronic kidney disease, or unspecified chronic kidney disease; N18.9 Chronic kidney disease, unspecified; I50.9 Heart failure, unspecified; Z86.2 Personal history of diseases of the blood and blood-forming organs and certain disorders involving the immune mechanism; Z79.01 Long term (current) use of anticoagulants
CPT/HCPCS: 31500; 36680; 71045; 87070; 87077; 87205; 92950; 99291; J0171; J0330; J1100; J1265; J7042; 94002